=== PATIENT | male | born 1955 | race Two or more races ===

== ENCOUNTER 2020-08-27 23:11 | Emergency (ER) | payer OTHER ==
[~2020-08-27] VITALS: Ht 177.8 cm; Wt 88.5 kg
--- NOTE | 2020-08-27 23:13 | NUR ---
PT AAOX4. AMBULATORY WITH STEADY GAIT. BIBRA C/O ABD PAIN WITH DIARRHEA. PLACED IN BED 4 ON MONITOR AND PULSE OX. VSS. NO ACUTE DISTRESS NOTED. IV LINE ESTABLISHED LAC 20G. AWAITING ER MD FOR EVAL AND ORDERS.
[2020-08-27] MEDS ORDERED: ONDANSETRON HCL/PF 4 MG/2 ML VIAL ONE (23:28)
[2020-08-27] MEDS ORDERED: MORPHINE SULFATE INJ 4 MG/ML DISP.SYRIN ONE (23:28)
[2020-08-27] MEDS ORDERED: MORPHINE SULFATE INJ 2 MG/ML DISP.SYRIN IV ONE (23:30)
[2020-08-27] MEDS ORDERED: IV NS 0.9% 500 ML BAG IV ONE (23:30)
[2020-08-27] MEDS ORDERED: ONDANSETRON HCL/PF 4 MG/2 ML VIAL IVP ONE (23:30)
[2020-08-27 23:40] LABS: BASOPHILS # (AUTO) 0.1 /CMM (0.0-0.2); BASOPHILS % (AUTO) 1.5 % (0.0-2.0); EOSINOPHILS % (AUTO) 1.5 % (0.0-6.0); HEMATOCRIT 35 % (39-51); HEMOGLOBIN 11.9 g/dL (13.5-17.5); LYMPHOCYTES # (AUTO) 1.4 /CMM (0.8-4.8); LYMPHOCYTES % (AUTO) 23.3 % (20.0-44.0); MEAN CORPUSCULAR HGB CONC 34 g/dl (31.0-36.0); MEAN CORPUSCULAR VOLUME 93 fL (80-96); MONOCYTES # (AUTO) 0.5 /CMM (0.1-1.30); MONOCYTES % (AUTO) 7.4 % (2.0-12.0); NEUTROPHILS % (AUTO) 66.3 % (43.0-81.0); PLATELET COUNT (AUTO) 208 /CMM (150-450); RED BLOOD CELL COUNT(AUTO) 3.76 MIL/uL (4.5-6.0); WHITE BLOOD COUNT (AUTO) 6.1 K/uL (4.3-11.0)
--- NOTE | 2020-08-27 23:43 | NUR ---
BROUGHT TO CT
[2020-08-27 23:50] LABS: CALCIUM, SERUM 8.5 mg/dL (8.5-10.1); CREATININE 1.4 mg/dL (0.6-1.3); POTASSIUM 4.5 mmol/L (3.5-5.1)
[2020-08-27 23:55] LABS: ALBUMIN 3.4 g/dL (3.4-5.0); BILIRUBIN,DIRECT 0.1 mg/dL (0.0-0.2); BILIRUBIN,TOTAL 0.4 mg/dL (0.2-1.0); TOTAL PROTEIN, SERUM 6.2 g/dL (6.4-8.2)
[2020-08-28] MEDS ORDERED: TRAM50TA2 PO (00:19)
[2020-08-28] MEDS ORDERED: METR500T PO (00:19)
[2020-08-28] MEDS ORDERED: AMOX-430 PO (00:19)
--- NOTE | 2020-08-28 00:42 | NUR ---
IV removed. Catheter intact and site benign. Pressure and 4x4 applied to site. No bleeding noted.
[2020-08-28 00:49] VITALS: BP 125/71
== END 2020-08-28 00:49 | disposition home or self-care (01) ==
LOC: ER 23:13
DX: K52.9 Noninfective gastroenteritis and colitis, unspecified (principal)
CPT/HCPCS: 36415; 74176; 80048; 80076; 83690; 85025; 85730; 96374; 96375; 99284; J2270; J2405; J7040

== ENCOUNTER → 2022-01-10 | Emergency (ER) | payer BC, MEDICARE, OTHER ==
[~2022-01-10] VITALS: Ht 177.8 cm; Wt 91.6 kg
[~2022-01-10] MED LIST: AMOX-430 PO; CIPR500T5 PO; KETOROLAC TROMETHAMINE INJ 30 MG/ML VIAL IV ONE; KETOROLAC TROMETHAMINE INJ 30 MG/ML VIAL ONE; METR500T PO; ZOLP5TAB2 PO
[2022-01-10 12:17] VITALS: BP 181/89
--- NOTE | 2022-01-10 12:30 | NUR ---
URINE SAMPLE WAS OBTAINED AND SENT TO LAB
--- NOTE | 2022-01-10 12:44 | NUR ---
20 G SL INSERTED ON L AC, BLOOD SAMPLES OBTAINED AND SENT TO LAB
[2022-01-10 12:56] LABS: BASOPHILS % (AUTO) 0.2 % (0.0-2.0); EOSINOPHILS % (AUTO) 0.6 % (0.0-6.0); HEMATOCRIT 30 % (39-51); HEMOGLOBIN 9.6 g/dL (13.5-17.5); LYMPHOCYTES # (AUTO) 0.9 K/uL (0.8-4.8); LYMPHOCYTES % (AUTO) 12.4 % (20.0-44.0); MEAN CORPUSCULAR HGB CONC 32 g/dl (31.0-36.0); MEAN CORPUSCULAR VOLUME 68 fL (80-96); MONOCYTES # (AUTO) 0.7 K/uL (0.1-1.30); MONOCYTES % (AUTO) 9.5 % (2.0-12.0); NEUTROPHILS # (AUTO) 5.6 K/uL (1.8-8.9); NEUTROPHILS % (AUTO) 77.3 % (43.0-81.0); PLATELET COUNT (AUTO) 372 K/uL (150-450); RED BLOOD CELL COUNT(AUTO) 4.44 MIL/uL (4.5-6.0); WHITE BLOOD COUNT (AUTO) 7.3 K/uL (4.3-11.0)
[2022-01-10 12:57] LABS: BILIRUBIN,URINE NEGATIVE (NEGATIVE); COLOR,URINE YELLOW (YELLOW); LEUKOCYTE ESTERASE ,URINE NEGATIVE (NEGATIVE); NITRITE, URINE NEGATIVE (NEGATIVE); PROTEIN,URINE TRACE mg/dl (NEGATIVE); UGLUCOSE NEGATIVE (NEGATIVE); UROBILINOGEN,URINE 0.2 EU/dL (0.2)
[2022-01-10 13:10] LABS: BACTERIA,URINE Few /HPF (None Seen); RBC,URINE 0-2 /HPF (0-2); WAXY CASTS,URINE Moderate /LPF (None Seen); WBC,URINE 0-2 /HPF (0-3)
[2022-01-10 13:13] LABS: CREATININE 1.6 mg/dL (0.6-1.3); POTASSIUM 4.3 mmol/L (3.5-5.1)
[2022-01-10 13:19] LABS: ALBUMIN 3.8 g/dL (3.4-5.0); BILIRUBIN,DIRECT 0.1 mg/dL (0.0-0.2); BILIRUBIN,TOTAL 0.5 mg/dL (0.2-1.0); TOTAL PROTEIN, SERUM 7.6 g/dL (6.4-8.2)
--- NOTE | 2022-01-10 14:42 | NUR ---
30 MG TORADOL IV ADMINISTERED ORDERED FOR ABDOMINAL PAIN
== END | disposition home or self-care (01) ==
LOC: ER 12:19
DX: K52.9 Noninfective gastroenteritis and colitis, unspecified (principal); Z60.2 Problems related to living alone
CPT/HCPCS: 99284; 74176; 96374; 76705; 85025; 80048; 83690; 80076; 81001; 36415; J1885